=== PATIENT | female | born 1960 | race Caucasian/White ===

== ENCOUNTER 2018-06-06 16:42 | Emergency (ER) | payer MEDICAID ==
[2018-06-06 17:07] VITALS: BP 136/78
[2018-06-06] MEDS ORDERED: Diphtheria,Pertussis(Acell),Tetanus Vaccine 0.5 ML Syringe IM ONE (17:14)
--- NOTE | 2018-06-06 17:18 | EDM.PDOC ---
ED HPI GENERAL MEDICAL PROBLEM - General Chief Complaint: Laceration Stated Complaint: CUT ON RT FT Time Seen by Provider: 06/06/18 17:15 Source of Information: Reports: Patient History Limitations: Reports: No Limitations - History of Present Illness INITIAL COMMENTS - FREE TEXT/NARRATIVE: HISTORY AND PHYSICAL: History of present illness: Patient is a 50-year-old female here with a laceration to her right heel. She states that around midnight to 2 AM she was out watering her garden and when she went outside the screen door came back and hit her in the right foot. She is unsure of her last tetanus shot. He is otherwise in her usual state of health. Review of systems: As per history of present illness and below otherwise all systems reviewed and negative. Past medical history: As per history of present illness and as reviewed below otherwise noncontributory. Surgical history: As per history of present illness and as reviewed below otherwise noncontributory. Social history: No reported history of drug or alcohol abuse. Family history: As per history of present illness and as reviewed below otherwise noncontributory. Physical exam: General: Patient lying comfortably in no acute distress HEENT: Atraumatic, normocephalic, pupils reactive, negative for conjunctival pallor or scleral icterus, mucous membranes moist, throat clear, neck supple, nontender, trachea midline. Lungs: Clear to auscultation, breath sounds equal bilaterally, chest nontender. Heart: S1S2, regular, negative for clicks, rubs, or JVD. Extremities: 2cm laceration to the posterior right foot. Normal dorsi and plantar flexion. Negative for cords or calf pain. Neurovascular unremarkable. Neuro: Awake, alert, oriented. Cranial nerves II through XII unremarkable. Cerebellum unremarkable. Motor and sensory unremarkable throughout. Exam nonfocal. Notes: Diagnostics: [] Therapeutics: Tdap Steri-strips Impression: Laceration Plan: 1. Keep the area clean and dry and let steri-strips fall off on their own 2. Follow up with primary care provider 3. Return to ED as needed as discussed Definitive disposition and diagnosis as appropriate pending reevaluation and review of above. - Related Data Allergies Allergy/AdvReac Type Severity Reaction Status Date / Time No Known Allergies Allergy Verified 06/06/18 17:01 Home Meds: Home Meds Citalopram [Citalopram HBr] 40 mg PO DAILY 06/06/18 [History] Past Medical History HEENT History: Reports: None Cardiovascular History: Reports: None Respiratory History: Reports: Asthma Other Respiratory History: REports 30 yr history of smoking, current use 1 pack per day Other Gastrointestinal History: Intermittent rectal bleeding Genitourinary History: Reports: None Other Musculoskeletal History: Right hand and index region, hx: Cerivcal spine surgery with Cadaver implant and Titanium. Supraclavicular mass (enlargement) with clavicle pain Other Neuro History: Treat with Meclizine prn Oncologic (Cancer) History: Reports: None Other Dermatologic History: Elbows area to Leg of "psoriasis or eczema, unsure what" - Infectious Disease History Infectious Disease History: Reports: Chicken Pox - Past Surgical History Female Surgical History: Reports: Other (See Below) Other Musculoskeletal Surgeries/Procedures:: Cervical spine as noted above Other Oncologic Surgeries/Procedures: Bilateral Breast lumpectomies Social & Family History - Family History Family Medical History: Noncontributory - Tobacco Use Smoking Status *Q: Current Every Day Smoker Years of Tobacco use: 45 Packs/Tins Daily: 1 - Caffeine Use Caffeine Use: Reports: None - Alcohol Use Days Per Week of Alcohol Use: 7 Number of Drinks Per Day: 2 Total Drinks Per Week: 14 - Recreational Drug Use Recreational Drug Use: No ED ROS GENERAL - Review of Systems Review Of Systems: ROS reveals no pertinent complaints other than HPI. ED EXAM, SKIN/RASH Exam: See Below (see dictation) Course - Vital Signs Last Recorded V/S: Last Vital Signs Temp 36.2 C 06/06/18 17:00 Pulse 68 06/06/18 17:00 Resp 18 06/06/18 17:00 BP 136/78 06/06/18 17:00 Pulse Ox 95 06/06/18 17:00 - Orders/Labs/Meds Orders: Active Orders 24 hr Category Date Time Status Vaccines to be Administered [RC] PER UNIT ROUTINE Care 06/06/18 17:14 Ordered Meds: Medications Discontinued Medications Generic Name Dose Route Start Last Admin Trade Name Freq PRN Reason Stop Dose Admin Diphtheria/Tetanus/Acell Pertussis 0.5 ml 06/06/18 17:14 06/06/18 17:34 Adacel IM 06/06/18 17:15 0.5 ml .ONCE ONE Administration Departure - Departure Time of Disposition: 17:45 Disposition: Home, Self-Care 01 Condition: Good Clinical Impression: Laceration - Discharge Information Referrals: PCP,None [Primary Care Provider] - Forms: ED Department Discharge Additional Instructions: The following information is given to patients seen in the emergency department who are being discharged to home. This information is to outline your options for follow-up care. We provide all patients seen in our emergency department with a follow-up referral. The need for follow-up, as well as the timing and circumstances, are variable depending upon the specifics of your emergency department visit. If you don't have a primary care physician on staff, we will provide you with a referral. We always advise you to contact your personal physician following an emergency department visit to inform them of the circumstance of the visit and for follow-up with them and/or the need for any referrals to a consulting specialist. The emergency department will also refer you to a specialist when appropriate. This referral assures that you have the opportunity for follow-up care with a specialist. All of these measure are taken in an effort to provide you with optimal care, which includes your follow-up. Under all circumstances we always encourage you to contact your private physician who remains a resource for coordinating your care. When calling for follow-up care, please make the office aware that this follow-up is from your recent emergency room visit. If for any reason you are refused follow-up, please contact the [facility] Emergency Department at and asked to speak to the emergency department charge nurse. [facility] [address] [place] [id number] [address] 1. Keep the area clean and dry and let steri-strips fall off on their own 2. Follow up with primary care provider 3. Return to ED as needed as discussed - My Orders Last 24 Hours: My Active Orders 06/06/18 17:14 Vaccines to be Administered [RC] PER UNIT ROUTINE - Assessment/Plan Last 24 Hours: My Active Orders 06/06/18 17:14 Vaccines to be Administered [RC] PER UNIT ROUTINE
== END 2018-06-06 17:52 | disposition home or self-care (01) ==
LOC: MW.ED 16:42
DX: S91.311A Laceration without foreign body, right foot, initial encounter (principal); Z23 Encounter for immunization; F17.210 Nicotine dependence, cigarettes, uncomplicated; Z79.899 Other long term (current) drug therapy; W22.8XXA Striking against or struck by other objects, initial encounter
CPT/HCPCS: 90471; 90715; 99282-25

== ENCOUNTER 2021-07-15 05:23 | Emergency (ER) | payer MEDICAID ==
[2021-07-15] MEDS ORDERED: Sodium Chloride 0.9% 1,000 ML IV ONE ×2 (05:39→05:40)
--- NOTE | 2021-07-15 06:09 | CT ---
INDICATION: Head injury from trauma, fall TECHNIQUE: CT Head without i.v. contrast. Coronal and sagittal reformats were obtained. COMPARISON: None FINDINGS: CSF space: The ventricles are normal for age. Brain: No evidence of mass, acute infarction or hemorrhage is seen. No mass-effect or midline shift is seen. The brain parenchyma is otherwise normal in appearance with preservation of the hernandez-white matter junction. Calvarium: The visualized paranasal sinuses are well aerated. The mastoid air cells are clear. The visualized orbits are grossly unremarkable. The calvarium is unremarkable in appearance with no fractures identified. A small right vertex scalp hematoma is present. IMPRESSION: 1. No evidence of acute infarction, intracranial hemorrhage, or mass-effect seen. Please note that all CT scans at this facility use dose modulation, iterative reconstruction, and/or weight-based dosing when appropriate to reduce radiation dose to as low as reasonably achievable. Dictated by: Christos Huston MD @ 07/15/2021 06:07:24 (Electronically Signed)
--- NOTE | 2021-07-15 06:13 | CT ---
Indication: Trauma, fall. Technique: Noncontrast axial CT of the cervical spine with coronal and sagittal reformats are provided. Comparison: No prior studies available for comparison at this institution. Findings: There is straightening of cervical spine alignment. Vertebral body heights are maintained. No evidence of fracture. The craniocervical junction is unremarkable. Posterior fossa structures are grossly normal. Postoperative changes of anterior plate and screw fixation at C4-5 with bilateral pedicle screw and plate fixation. There is mature interbody fusion at these levels. There is C3-4 anterior fusion with lucency along the screws and no evidence of mature interbody fusion. There is a interbody spacer at C6-7 without evidence of mature interbody fusion. A large well-circumscribed focus of air measuring 4 x 3.2 cm is seen along the right thoracic inlet. The lung apices are clear. C1-2: No spinal canal stenosis. C2-3: No spinal canal stenosis or neural foraminal narrowing. C3-4: No spinal canal stenosis or neural foramina narrowing. C4-5: No spinal canal stenosis or neural foramina narrowing. C5-6: No spinal canal stenosis or neural foramina narrowing. C6-7: No spinal canal stenosis or neural foramina narrowing. C7-T1: No spinal canal stenosis. Uncovertebral spurring results in mild bilateral neural foraminal narrowing. T1-2: No spinal canal stenosis or neural foramina narrowing. Impression: 1. No acute osseous abnormality. Straightening of cervical spine alignment. 2. ACF changes at C4-5 with mature interbody fusion. Anterior discectomy and screw fixation at C3-4 with lucency along the screws and no evidence of mature fusion. Interbody cage at C6-7 without evidence of intra body fusion. 3. No significant spinal canal stenosis or neural foramina narrowing. 4. A large well-circumscribed focus of air measuring 4 x 3.2 cm is seen along the right thoracic inlet. This may represent a paratracheal air cyst or tracheal diverticulum Please note that all CT scans at this facility use dose modulation, iterative reconstruction, and/or weight-based dosing when appropriate to reduce radiation dose to as low as reasonably achievable. Dictated by Iván Narvaez MD @ 07/15/2021 9:47:48 AM (Electronically Signed)
--- NOTE | 2021-07-15 06:23 | EDM.PDOC ---
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 History was obtained from family who brought her here to the ED. Patient denies any recent fevers, shakes, chills, nausea, vomiting, diarrhea. Patient apparently did have an episode of losing bladder continence after her fall. Patient denies any pain to her upper or lower extremities. Patient denies any chest pain or abdominal pain. Patient denies any back pain at this time. No seizure activity. Review of systems: As per history of present illness and below otherwise all systems reviewed and n egative. Past medical history: As per history of present illness and as reviewed below otherwise noncontributory. Surgical history: As per history of present illness and as reviewed below otherwise noncontributory. Social history: No reported history of drug abuse. Family history: As per history of present illness and as reviewed below otherwise noncontributory. Physical exam: This patient was seen and evaluated during the 2019 SARS-CoV-2 novel coronavirus pandemic period. Community viral transmission is ongoing at time of this encounter and the emergency department is operating under pandemic response procedures. Constitutional: Patient is oriented to person, place, and time. Appears well- developed and well-nourished. No distress. HEENT: Moist mucous membranes Head: Normocephalic and atraumatic Eyes: Right eye exhibits no discharge. Left eye exhibits no discharge. No scleral icterus Neck: Normal range of motion. No tracheal deviation present. Cardiovascular: Normal rate and regular rhythm. Pulmonary: Effort normal, no respiratory distress. Abdominal: No distention Musculoskeletal: Normal range of motion Neurologic: Alert and oriented to person, place and time. Skin: [place], warm and dry. Psychiatric: Normal mood and affect. Behavior is normal. Judgment and thought content normal. Nursing note and vital signs have been reviewed Patient's ER physical exam is significant for significant mount of odor of alcohol coming from her breath. Patient has nystagmus consistent with alcohol intoxication. Patient has a golf ball sized hematoma to her right posterior scalp. Patient has no C-spine T-spine or L-spine tenderness to palpation. Patient has no left upper or right upper quadrant tenderness to palpation. Patient has no crepitus to palpation to the anterior chest wall. Patient is neurologically intact. Patient does not present with any signs or or symptoms that would be consistent with acute intracranial, intra-abdominal, intrathoraci c, or long bone injury. All long bones have been palpated and range of motion been performed and there is no evidence of any acute pathology. Diagnostics: CT head and C-spine: See below for results Assessment and plan: This is a 61-year-old female who appears to be clinically intoxicated at this time who presents ER today secondary to a fall with head injury. It is unclear whether or not the patient did have a loss of consciousness after the fall. Given her alcohol intoxication and her fall, CT scan of her head and cervical spine has been ordered. Patient will be placed in a cervical collar until results obtained. Patient will be monitored in the ER until she is clinically sober. 6:24 AM: CT scan of the cervical spine: No acute osseous injuries or aggressive bony lesions are identified. There is anterior spinal fusion of C3-C7 noted and discussed on final report which is not available at this time. A well circumscribed gas collection measuring 4 x 3 is seen along the right thoracic inlet which may represents a tracheal diverticulum. CT scan of head: No evidence of acute infarction intracranial hemorrhage or mass-effect seen. Patient be monitored in ER until she is clinically sober prior to discharge. 6:46 AM: Patient is alert awake and oriented x3 and appears to be very appropriate. Patient is able to give a very detailed history of her past and is able to have a normal conversation with me at this time. Patient reports she did have a positive loss of consciousness when she fell off a chair/barstool. Patient reports she is not in a wheelchair. Patient reports that at baseline she is ambulatory. Patient reports that she lives with family. Blood pressure currently is with a systolic of 106. Patient's sodium is 129. Patient is tolerating p.o. liquids here in the ED. IV hydration not indicated at this time as patient is clinically euvolemic. Definitive disposition and diagnosis as appropriate pending reevaluation and review of above. 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 Supraclavicular mass (enlargement) with clavicle pain Other Neuro History: Treat with Meclizine prn Psychiatric History: Reports: Addiction Oncologic (Cancer) History: Reports: None Dermatologic History: Reports: Other (See Below) Other Dermatologic History: Elbows area to Leg of "psoriasis or eczema, unsure what" - Infectious Disease History Infectious Disease History: Reports: Chicken Pox - Past Surgical History Female Surgical History: Reports: Other (See Below) Other Female Surgeries/Procedures: C-sections x 5. tubal litigations Musculoskeletal Surgical History: Reports: Other (See Below) Other Musculoskeletal Surgeries/Procedures:: Cervical spine as noted above Other Oncologic Surgeries/Procedures: Bilateral Breast lumpectomies Social & Family History - Family History Family Medical History: No Pertinent Family History - Caffeine Use Caffeine Use: Reports: None - Recreational Drug Use Recreational Drug Use: Yes Drug Use in Last 12 Months: Yes Recreational Drug Type: Reports: Marijuana/Hashish Recreational Drug Use Frequency: Daily Review of Systems - Review of Systems Review Of Systems: See Below ED EXAM, GENERAL - Physical Exam Exam: See Below Course - Vital Signs Last Recorded V/S: Last Vital Signs Temp 98.1 F 07/15/21 05:30 Pulse 61 07/15/21 07:37 Resp 20 07/15/21 07:37 BP 97/67 07/15/21 07:37 Pulse Ox 99 07/15/21 07:37 - Orders/Labs/Meds Labs: Laboratory Tests 07/15/21 07/15/21 07/15/21 Range/Units 05:35 05:35 05:35 WBC 10.23 (4.0-11.0) K/uL RBC 3.99 L (4.30-5.90) M/uL Hgb 14.2 (12.0-16.0) g/dL Hct 38.9 (36.0-46.0) % MCV 97.5 (80.0-98.0) fL MCH 35.6 H (27.0-32.0) pg MCHC 36.5 (31.0-37.0) g/dL RDW Std Deviation 43.2 (28.0-62.0) fl RDW Coeff of [place] 12 (11.0-15.0) % Plt Count 193 (150-400) K/uL MPV 9.80 (7.40-12.00) fL Neut % (Auto) 54.5 (48.0-80.0) % Lymph % (Auto) 33.7 (16.0-40.0) % [place] % (Auto) 5.3 (0.0-15.0) % Eos % (Auto) 5.7 (0.0-7.0) % Baso % (Auto) 0.8 (0.0-1.5) % Neut # (Auto) 5.6 (1.4-5.7) K/uL Lymph # (Auto) 3.5 H (0.6-2.4) K/uL [place] # (Auto) 0.5 (0.0-0.8) K/uL Eos # (Auto) 0.6 (0.0-0.7) K/uL Baso # (Auto) 0.1 (0.0-0.1) K/uL Nucleated RBC % 0.0 /100WBC Nucleated RBCs # 0 K/uL Sodium 129 L (136-145) mmol/L Potassium 3.3 L (3.5-5.1) mmol/L Chloride 92 L (98-107) mmol/L Carbon Dioxide 23.6 (21.0-32.0) mmol/L BUN 4 L (7.0-18.0) mg/dL Creatinine 0.6 (0.6-1.0) mg/dL Est Cr Clr Drug Dosing TNP Estimated GFR (MDRD) > 60.0 ml/min Glucose 119 H (74-106) mg/dL Calcium 8.7 (8.5-10.1) mg/dL Total Bilirubin 0.3 (0.2-1.0) mg/dL AST 26 (15-37) IU/L ALT 25 (14-63) IU/L Alkaline Phosphatase 92 (46-116) U/L Total Protein 7.1 (6.4-8.2) g/dL Albumin 3.8 (3.4-5.0) g/dL Globulin 3.3 (2.6-4.0) g/dL Albumin/Globulin Ratio 1.2 (0.9-1.6) Urine Color YELLOW Urine Appearance CLEAR Urine pH 6.0 (5.0-8.0) Ur Specific [place] <= 1.005 (1.001-1.035) Urine Protein NEGATIVE (NEGATIVE) mg/dL Urine Glucose (UA) NEGATIVE (NEGATIVE) mg/dL Urine Ketones NEGATIVE (NEGATIVE) mg/dL Urine Occult Blood TRACE-INTACT H (NEGATIVE) Urine Nitrite NEGATIVE (NEGATIVE) Urine Bilirubin NEGATIVE (NEGATIVE) Urine Urobilinogen 0.2 (<2.0) EU/dL Ur Leukocyte Esterase NEGATIVE (NEGATIVE) Urine RBC 0-1 (0-2/HPF) Urine WBC 0-1 (0-5/HPF) Ur Epithelial Cells RARE (NONE-FEW) Urine Bacteria RARE (NEGATIVE) Meds: Medications Discontinued Medications Generic Name Dose Route Start Last Admin Trade Name Freq PRN Reason Stop Dose Admin Sodium Chloride 1,000 mls @ 999 mls/hr 07/15/21 05:39 07/15/21 07:29 Normal Saline IV 07/15/21 06:39 Not Given .BOLUS ONE Sodium Chloride 1,000 mls @ 999 mls/hr 07/15/21 05:40 07/15/21 07:29 Normal Saline IV 07/15/21 06:40 Not Given .BOLUS ONE Departure - Departure Time of Disposition: 07:00 Disposition: Home, Self-Care 01 Clinical Impression: Head injury, Scalp hematoma, Alcohol intoxication - Discharge Information Instructions: Head Injury, Adult, Facial or Scalp Contusion, Alcohol Intoxication, [id number] Referrals: Rafal Garcia MD [Primary Care Provider] - Forms: ED Department Discharge Additional Instructions: You were seen and evaluated in the ER today secondary to head injury that occurred after a fall while drinking. The CT scan of your head and cervical spine did not show any significant abnormalities or injury. Please go home and get plenty rest. Do not drink so much alcohol in the future. You can take T ylenol as needed for pain to your scalp/headaches. The following information is given to patients seen in the emergency department who are being discharged to home. This information is to outline your options for follow-up care. We provide all patients seen in our emergency department with a follow-up referral. The need for follow-up, as well as the timing and circumstances, are variable depending upon the specifics of your emergency department visit. If you don't have a primary care physician on staff, we will provide you with a referral. We always advise you to contact your personal physician following an emergency department visit to inform them of the circumstance of the visit and for follow-up with them and/or the need for any referrals to a consulting specialist. The emergency department will also refer you to a specialist when appropriate. This referral assures that you have the opportunity for follow-up care with a specialist. All of these measure are taken in an effort to provide you with optimal care, which includes your follow-up. Under all circumstances we always encourage you to contact your private physician who remains a resource for coordinating your care. When calling for follow-up care, please make the office aware that this follow-up is from your recent emergency room visit. If for any reason you are refused follow-up, please contact the [facility] Emergency Department at and asked to speak to the emergency department charge nurse. [facility] - [facility] [address] [place] [id number] [facility] [address] [place] [id number]
[2021-07-15 06:48] LABS: BLOOD UREA NITROGEN,BUN 4 mg/dL (7.0-18.0); CARBON DIOXIDE,CO2 23.6 mmol/L (21.0-32.0); CHLORIDE,CL 92 mmol/L (98-107); GLUCOSE RANDOM 119 mg/dL (74-106); POTASSIUM,K 3.3 mmol/L (3.5-5.1); SODIUM,NA 129 mmol/L (136-145)
[2021-07-15 07:37] VITALS: BP 97/67; PULSE 61
== END 2021-07-15 07:36 | disposition home or self-care (01) ==
LOC: MW.ED 05:23
DX: S00.03XA Contusion of scalp, initial encounter (principal); F10.129 Alcohol abuse with intoxication, unspecified; I10 Essential (primary) hypertension; J45.909 Unspecified asthma, uncomplicated; F17.210 Nicotine dependence, cigarettes, uncomplicated; Z79.899 Other long term (current) drug therapy; W07.XXXA Fall from chair, initial encounter; Y92.009 Unspecified place in unspecified non-institutional (private) residence as the place of occurrence of the external cause
CPT/HCPCS: 36415; 70450; 70450-26; 72125; 72125-26; 80053; 81001; 85025; 99284-25

== ENCOUNTER 2022-04-06 03:38 | Emergency (ER) | payer MEDICAID ==
[2022-04-06 06:18] VITALS: BP 132/69; PULSE 73
== END 2022-04-06 06:18 | disposition home or self-care (01) ==
LOC: MW.ED 03:38
DX: S00.03XA Contusion of scalp, initial encounter (principal); F10.129 Alcohol abuse with intoxication, unspecified; F17.210 Nicotine dependence, cigarettes, uncomplicated; I10 Essential (primary) hypertension; Z79.899 Other long term (current) drug therapy; W19.XXXA Unspecified fall, initial encounter
CPT/HCPCS: 70450; 70450-26; 72125; 72125-26; 99283-25

== ENCOUNTER 2023-10-20 00:03 | Emergency (ER) | payer SELFPAY ==
[2023-10-20] MEDS ORDERED: Sodium Chloride 0.9% 10 ML Syringe FLUSH PRN (00:33)
[2023-10-20] MEDS ORDERED: Sodium Chloride 0.9% 2.5 ML Syringe FLUSH PRN (00:33)
[2023-10-20 00:54] LABS: BASOPHILS ABSOLUTE AUTO 0.05 K/uL (0.00-0.20); BASOPHILS PERCENT AUTO 0.5 % (0.0-1.0); EOSINOPHILS ABSOLUTE AUTO 0.18 K/uL (0.00-0.45); EOSINOPHILS PERCENT AUTO 1.6 % (0.0-6.0); HEMATOCRIT 38.3 % (37.0-47.0); HEMOGLOBIN 14.2 g/dL (12.0-16.0); IMMATURE GRAN ABSOLUTE AUTO 0.04 K/uL (0.00-0.05); IMMATURE GRAN PERCENT AUTO 0.4 % (0.0-0.4); LYMPHOCYTES PERCENT AUTO 9.1 % (24.0-44.0); MEAN CORPUSCULAR HGB CONC 37.1 g/dL (32.0-36.0); MEAN CORPUSCULAR VOLUME 91.6 fL (83.0-99.0); MEAN PLATELET VOLUME 8.8 fL (9.4-12.3); MONOCYTES ABSOLUTE AUTO 0.69 K/uL (0.00-0.80); MONOCYTES PERCENT AUTO 6.3 % (0.0-8.0); NEUTROPHILS ABSOLUTE AUTO 9.02 K/uL (1.80-7.70); NEUTROPHILS PERCENT AUTO 82.1 % (41.0-71.0); PLATELET COUNT,PLT 277 K/uL (150-400); RED BLOOD CELL COUNT 4.18 M/uL (4.10-5.30); WHITE BLOOD CELL COUNT,WBC 10.98 K/uL (3.9-11.3)
[2023-10-20] MEDS ORDERED: Codeine/guaiFENesin 10-100 MG/5 ML Syrup 5 ML Cup PO ONE (01:01)
[2023-10-20] MEDS ORDERED: Albuterol/Ipratropium 3.0-0.5 MG/3 ML Neb Soln NEB ONE ×2 (01:01→03:08)
[2023-10-20 01:12] LABS: CORONAVIRUS COVID-19 NAA NEGATIVE (NEGATIVE); INFLUENZA A NAA NEGATIVE (NEGATIVE); INFLUENZA B NAA NEGATIVE (NEGATIVE); RESPIRATORY SYNCYTIAL VIR NAA NEGATIVE (NEGATIVE)
[2023-10-20] MEDS ORDERED: Ondansetron 4 MG/2 ML SDV IVPUSH ONE (01:13)
[2023-10-20 01:18] LABS: A/G RATIO 0.7 (0.9-1.6); ALBUMIN 3.2 g/dL (3.4-5.0); BILIRUBIN TOTAL 0.6 mg/dL (0.2-1.0); CALCIUM 9.3 mg/dL (8.5-10.1); CARBON DIOXIDE,CO2 22.8 mmol/L (21.0-32.0); CREATININE 0.6 mg/dL (0.6-1.0); EST CRCL DRUG DOSING (CG) 77.65 mL/min; PROTEIN TOTAL,TP 7.5 g/dL (6.4-8.2)
[2023-10-20] MEDS ORDERED: Water For Injection, Sterile 20 ML ONE (01:39)
[2023-10-20] MEDS ORDERED: methylPREDNISolone Sodium Succinate 125 MG/2 ML SDV IVPUSH ONE (03:08)
[2023-10-20] MEDS ORDERED: Azithromycin 250 MG Tab PO ONE (03:08)
[2023-10-20 04:58] VITALS: BP 118/59; PULSE 73
== END 2023-10-20 04:59 | disposition home or self-care (01) ==
LOC: MW.ED 00:03
DX: J40 Bronchitis, not specified as acute or chronic (principal); I10 Essential (primary) hypertension; Z79.899 Other long term (current) drug therapy
CPT/HCPCS: 0241U; 36415; 71045; 80053; 83880; 84484; 85025; 85379; 93005; 96374; 96375; 99285; A9270; J2405; J2930; J3490; J7620-GY

== ENCOUNTER 2025-02-16 07:38 | Day surgery (SDC) | payer MEDICARE, OTHER ==
[~2025-02-16 07:38] MED LIST: propofoL 500 MG/50 ML 50 ML ONE
[2025-02-16] MEDS: Lactated Ringers 1,000 ML IV SCH (08:30)
[2025-02-16] MEDS ORDERED: Ketamine HCL/NACL, ISO-OSM 50 MG/5 ML Syringe ONE (08:50)
[2025-02-16] MEDS ORDERED: Propofol 200 MG/20 ML SDV ONE (08:55)
[2025-02-16 10:32] VITALS: BP 161/97; PULSE 57
== END 2025-02-16 09:38 | disposition home or self-care (01) ==
LOC: MW.SDS 07:38
PROVIDERS: ATTEND Surgery
DX: Z12.11 Encounter for screening for malignant neoplasm of colon (principal); K57.30 Diverticulosis of large intestine without perforation or abscess without bleeding; E11.9 Type 2 diabetes mellitus without complications; J45.909 Unspecified asthma, uncomplicated; I10 Essential (primary) hypertension; F17.210 Nicotine dependence, cigarettes, uncomplicated; F17.290 Nicotine dependence, other tobacco product, uncomplicated; Z79.899 Other long term (current) drug therapy
CPT/HCPCS: G0121; J2704; J7120; 00812; J3490

== ENCOUNTER 2025-04-29 00:58 | Emergency (ER) | payer MEDICARE, OTHER ==
[2025-04-29] MEDS: Amoxicillin/Clavulanate K 875-125 MG Tab PO ONE (02:02)
[2025-04-29] MEDS: Diphtheria,Pertussis(Acell),Tetanus Vaccine 0.5 ML Syringe IM ONE (02:02)
[2025-04-29 03:06] VITALS: BP 147/84; PULSE 57
== END 2025-04-29 03:06 | disposition home or self-care (01) ==
LOC: MW.ED 00:58
DX: S61.451A Open bite of right hand, initial encounter (principal); S61.031A Puncture wound without foreign body of right thumb without damage to nail, initial encounter; I10 Essential (primary) hypertension; J45.909 Unspecified asthma, uncomplicated; Z79.899 Other long term (current) drug therapy; Z79.51 Long term (current) use of inhaled steroids; Z23 Encounter for immunization; W54.0XXA Bitten by dog, initial encounter; Y93.89 Activity, other specified
CPT/HCPCS: 90471; 90715; 99283; 99283-25; A9270-GY